=== PATIENT | female | born 1950 | race Caucasian/White ===

== ENCOUNTER 2016-11-03 09:35 | Emergency (ER) | payer MEDICARE, OTHER ==
--- NOTE | 2016-11-03 10:00 | EDM.PDOC ---
ED HPI Trauma - General Chief Complaint: Upper Extremity Injury/Pain Stated Complaint: INJURY TO LT ARM Time Seen by Provider: 11/03/16 09:47 Source: Reports: Patient History Limitations: Reports: No limitations - History of Present Illness INITIAL COMMENTS - FREE TEXT/NARRATIVE: The patient presents with left wrist pain. She tripped on something and fell backward and hurt her left wrist. She has an obvious deformity to her left wrist. She is right handed. She denies any other injuries. She is in good health. Occurred When: just prior to arrival Occurred Where: home Method of Injury: fall (She tripped on something and fell backward) Severity: moderate Pain/Injury Location: Reports: upper extremity, left (wrist) Consciousness: Reports: no loss of consciousness Associated Symptoms: Reports: no other symptoms Allergies/ADRs: Allergies No Known Allergies Allergy (Verified 11/03/16 09:51) Home Medications: Ambulatory Orders Hydrocodone/Acetaminophen [Hydrocodon-Acetaminophen 5-325] 1 - 2 each PO Q6HR PRN #20 tablet 11/03/16 PARoxetine HCl [Paroxetine HCl] 10 mg PO DAILY 11/03/16 [Confirmed 11/03/16] Review of Systems - Review of Systems Review Of Systems: See Below Constitutional: Reports: no symptoms Eyes: Reports: no symptoms Ears: Reports: no symptoms Nose: Reports: no symptoms Mouth/Throat: Reports: no symptoms Respiratory: Reports: no symptoms Cardiovascular: Reports: no symptoms GI/Abdominal: Reports: No symptoms Genitourinary: Reports: no symptoms Musculoskeletal: Reports: other (Left wrist injury) Trauma Exam - Physical Exam Exam: See Below Exam Limited By: No limitations General Appearance: Reports: alert, no apparent distress Head: Reports: atraumatic, normocephalic Ears: Reports: normal external exam Nose: Reports: normal inspection Neck: Reports: non-tender Respiratory Exam: Reports: no respiratory distress, lungs clear, normal breath sounds Cardiovascular: Reports: regular rate, rhythm, no edema, no murmur GI/Abdominal: Reports: soft, non tender, no organomegaly Extremities: Reports: other (Left wrist has an obvious deformity. She has good sensation and capillary refill distally. She can move her fingers.) ED TRAUMA EXTREMITY PROCEDURES - Joint Reduction Site: other (Left wrist) Sedation: hematoma/fracture block Local anesthesia - Lidocaine (Xylocaine): 1% plain Pre-procedure NV status: normal Post-procedure NV status: normal Technique: traction/counter traction Number of Attempts: 1 Post-reduction imaging: completely reduced Joint Reduction Complications: No - Splinting Left Upper Extremity Splint site: Left wrist Pre-procedure NV status: normal Post-procedure NV status: normal Splint material: fiberglass Splint design: sugar tong Applied & form fitted by: provider Provider post-splint application NV check: NV status normal, good position Complications: No Course - Vital Signs Last Recorded V/S: Last Vital Signs Temp 98.8 F 11/03/16 09:40 Pulse 100 11/03/16 09:40 Resp 16 11/03/16 09:40 BP 132/84 11/03/16 09:40 Pulse Ox 97 11/03/16 09:40 - Orders/Labs/Meds Orders: Active Orders 24 hr Category Date Time Status Peripheral IV Care [RC] . DIRECTED Care 11/03/16 10:41 Active Wrist 2V Lt [CR] Stat Exams 11/03/16 11:48 Taken Wrist Comp Min 3V Lt [CR] Stat Exams 11/03/16 09:55 Taken Lactated Ringers [Ringers, Lactated] 1,000 ml Med 11/03/16 10:45 Active IV ASDIRECTED Sodium Chloride 0.9% [Saline Flush] Med 11/03/16 10:41 Active 10 ml FLUSH ASDIRECTED PRN Peripheral IV Insertion Adult [OM.PC] Routine Oth 11/03/16 10:41 Ordered Medication Orders Lactated Ringer's (Ringers, Lactated) 1,000 mls @ 125 mls/hr IV ASDIRECTED SADI Last Admin: 11/03/16 11:12 Dose: 125 mls/hr Sodium Chloride (Saline Flush) 10 ml FLUSH ASDIRECTED PRN PRN Reason: Keep Vein Open Last Admin: 11/03/16 10:57 Dose: 10 ml Meds: Medications Generic Name Dose Route Start Last Admin Trade Name Freq PRN Reason Stop Dose Admin Lactated Ringer's 1,000 mls @ 125 mls/hr 11/03/16 10:45 11/03/16 11:12 Ringers, Lactated IV 125 mls/hr ASDIRECTED SADI Administration Sodium Chloride 10 ml 11/03/16 10:41 11/03/16 10:57 Saline Flush FLUSH 10 ml ASDIRECTED PRN Administration Keep Vein Open Discontinued Medications Generic Name Dose Route Start Last Admin Trade Name Graciela PRN Reason Stop Dose Admin Hydromorphone HCl 1 mg 11/03/16 10:42 11/03/16 11:02 Dilaudid IVPUSH 11/03/16 10:43 1 mg ONETIME ONE Administration Lidocaine HCl 50 ml 11/03/16 10:45 11/03/16 11:03 Xylocaine 1% INJECT 11/03/16 10:46 50 ml ONETIME ONE Administration - Re-Assessments/Exams Free Text/Narrative Re-Assessment/Exam: 11/03/16 10:00 I will get an x-ray of her wrist. 11/03/16 12:12 She has a closed fracture of her distal radius. I ordered an IV and gave her dilaudid 1mg IV. I then did a hematoma block and reduced the fracture and I splinted her arm. She feels better. 11/03/16 12:14 The post reduction shows better alignment. I will discharge her home. Departure - Departure Time of Disposition: 12:15 Disposition: Home, Self-Care 01 Condition: good Clinical Impression: Fracture of radius and ulna Qualifiers: Encounter type: initial encounter Fracture type: closed Laterality: left Qualified Code(s): S52.502A - Unspecified fracture of the lower end of left radius, initial encounter for closed fracture; S52.602A - Unspecified fracture of lower end of left ulna, initial encounter for closed fracture Prescriptions: Hydrocodone/Acetaminophen [Hydrocodon-Acetaminophen 5-325] 1 - 2 each PO Q6HR PRN #20 tablet PRN Reason: Pain Referrals: Saturnino Altamirano MD [Physician] - 1 Day (Call the clinic tomorrow and let them know he wants to see you on Friday.) Forms: ED Department Discharge Additional Instructions: Ice your wrist for 15 minutes every other while awake for 2 days. Elevate your arm above your heart as much as you can for 2 days. Please return if you are worse. Dr Altamirano would like to see you tomorrow. Call the clinic and make an appointment. You can try some motrin for the pain or the pain meds I gave you. - My Orders Last 24 Hours: My Active Orders 11/03/16 09:55 Wrist Comp Min 3V Lt [CR] Stat 11/03/16 10:41 Peripheral IV Care [RC] . DIRECTED Sodium Chloride 0.9% [Saline Flush] 10 ml FLUSH ASDIRECTED PRN Peripheral IV Insertion Adult [OM.PC] Routine 11/03/16 10:45 Lactated Ringers [Ringers, Lactated] 1,000 ml IV ASDIRECTED 11/03/16 11:48 Wrist 2V Lt [CR] Stat - Assessment/Plan Last 24 Hours: My Active Orders 11/03/16 09:55 Wrist Comp Min 3V Lt [CR] Stat 11/03/16 10:41 Peripheral IV Care [RC] . DIRECTED Sodium Chloride 0.9% [Saline Flush] 10 ml FLUSH ASDIRECTED PRN Peripheral IV Insertion Adult [OM.PC] Routine 11/03/16 10:45 Lactated Ringers [Ringers, Lactated] 1,000 ml IV ASDIRECTED 11/03/16 11:48 Wrist 2V Lt [CR] Stat
[2016-11-03] MEDS ORDERED: Sodium Chloride 0.9% 10 ML Syringe FLUSH PRN (10:41)
[2016-11-03] MEDS ORDERED: HYDROmorphone 1 MG/ML Syringe IVPUSH ONE (10:42)
[2016-11-03] MEDS ORDERED: Lactated Ringers 1,000 ML IV SCH (10:45)
[2016-11-03] MEDS ORDERED: Lidocaine 1% 50 ML MDV INJECT ONE (10:45)
[2016-11-03 12:22] VITALS: BP 129/69
--- NOTE | 2016-11-04 08:10 | CR ---
Left wrist: Two views of the left wrist were obtained. Comparison: Previous left wrist study performed earlier on the same day (time 10:08 AM). Angulated distal radial fracture shows improvement but mild posterior tilt remains. Slightly displaced ulnar styloid avulsion fracture is incidentally noted. Degenerative change is stable. Fiberglass cast or splint is in place. Impression: 1. Improved alignment with mild posterior tilt remaining. 2. Fiberglass cast or splint is noted. Diagnostic code #2
--- NOTE | 2016-11-04 08:10 | CR ---
Left wrist: Four views of the left wrist were obtained. Comparison: No previous study. Distal radial fracture is identified through the metaphysis. Posterior impaction is seen with posterior tilt of the distal radial articular margin. Several small bony fragments are seen posterior to the fracture. Small ulnar styloid avulsion fracture is seen. Joint space narrowing noted off the distal navicular bone as well as degenerative change within the first MTP joint. Impression: 1. Distal radial and ulnar fractures as described above. 2. Degenerative change. Diagnostic code #3
== END 2016-11-03 12:41 | disposition home or self-care (01) ==
LOC: JD.ED 09:35
DX: S52.502A Unspecified fracture of the lower end of left radius, initial encounter for closed fracture (principal); S52.602A Unspecified fracture of lower end of left ulna, initial encounter for closed fracture; Z79.899 Other long term (current) drug therapy; W01.0XXA Fall on same level from slipping, tripping and stumbling without subsequent striking against object, initial encounter
CPT/HCPCS: 25565; 25605; 29125; 73100; 73110; 96361; 96374; 99284; J1170; J7050; J7120

== ENCOUNTER 2016-11-05 07:10 | Day surgery (SDC) | payer MEDICARE, OTHER ==
[~2016-11-05 07:10] MED LIST: Lactated Ringers 1,000 ML IV SCH; Lidocaine 1%/Sod Bicarbonate in NS 8.4% 1 ML Syringe PRN; Sodium Chloride 0.9% 10 ML Syringe FLUSH PRN
--- NOTE | 2016-11-05 07:28 | PCM.PREANE ---
Preanesthetic Assessment - ANESTHESIA/TRANSFUSION/FAMILY HX Anesthesia/Transfusion History: Prior Anesthesia Type of Anesthesia Reaction: Reports: Unknown Family History of Anesthesia Reaction: No Type of Transfusion Reactions: Reports: Unknown - REVIEW OF SYSTEMS Constitutional: Reports: no symptoms CARDIOVASCULAR SURGICAL TECH: Reports: no symptoms Respiratory: Reports: no symptoms Cardiovascular: Reports: no symptoms GI: Reports: no symptoms Other: Reports: depression - PHYSICAL ASSESSMENT HR: 55 O2 Sat by Pulse Oximetry: 96 RR: 16 BP: 152/82 Height: 1.68 m Weight: 72.575 kg NPO Status Date: 11/04/16 NPO Status Time: 23:30 ASA Class: 2 Mental Status: alert & oriented x3 Airway Class: Mallampati = 1 Dentition: Reports: normal dentition Thyro-Mental Finger Breadths: 3 Mouth Opening Finger Breadths: 3 ROM/Head Extension: full Respiratory Status: lungs clear to auscultation bilaterally Cardiovascular Status: regular rate & rhythm, normal S1, S2, no murmur, blood pressure WNL - ALLERGIES Allergies/Adverse Reactions: Allergies Allergy/AdvReac Type Severity Reaction Status Date / Time No Known Allergies Allergy Verified 11/04/16 15:03 - BLOOD Blood Available: No Product(s) Available: None - ANESTHESIA PLAN Preop Beta Nam: No Anesthesia Type Planned: general anesthesia - ACKNOWLEDGEMENTS Pt an appropriate candidate for the planned anesthesia: Yes Alternatives and risks of anesthesia discussed w pt/guardian: Yes Pt/Guardian understands and agree with anesthesia plan: Yes PreAnesthesia Questionnaire HEENT History: Reports: Impaired vision Other HEENT History: wears eyeglasses 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: Psychiatric History: Reports: Anxiety Hematologic History: Reports: Anemia, Iron deficiency - Infectious Disease History Infectious Disease History: Reports: Chicken pox, Measles - Past Surgical History HEENT Surgical History: Reports: Tonsillectomy GI Surgical History: Reports: Appendectomy Female Surgical History: Reports: Tubal ligation - SUBSTANCE USE Smoking Status *Q: Never Smoker Second Hand Smoke Exposure: No Recreational Drug Use History: No - HOME MEDS Home Medications: Home Meds Hydrocodone/Acetaminophen [Hydrocodon-Acetaminophen 5-325] 1 - 2 each PO Q6HR PRN #20 tablet 11/03/16 [Rx] PARoxetine HCl [Paroxetine HCl] 10 mg PO DAILY 11/03/16 [History] Naproxen Sodium [Aleve] 1 - 2 tab PO Q6H PRN 11/04/16 [History] - CURRENT (IN HOUSE) MEDS Current Meds: Current Medications Lactated Ringer's (Ringers, Lactated) 1,000 mls @ 125 mls/hr IV ASDIRECTED SADI Stop: 11/05/16 23:00 Lidocaine/Sodium Bicarbonate (Buffered Lidocaine 1% In Ns 8.4%) 0.25 ml .XX ONETIME PRN PRN Reason: Prior to IV Start Stop: 11/05/16 18:00 Sodium Chloride (Saline Flush) 10 ml FLUSH ASDIRECTED PRN PRN Reason: Keep Vein Open Stop: 11/05/16 18:00
[2016-11-05] MEDS ORDERED: Scopolamine 1.5 MG Transdermal Patch TRDERM ONE (07:29)
[2016-11-05] MEDS ORDERED: fentaNYL 100 MCG/2 ML SDV IVPUSH PRN (07:29)
[2016-11-05] MEDS ORDERED: Metoclopramide 10 MG/2 ML SDV IVPUSH PRN (07:29)
[2016-11-05] MEDS ORDERED: Ondansetron 4 MG/2 ML SDV IVPUSH PRN ×2 (07:29→09:39)
[2016-11-05] MEDS ORDERED: Dexamethasone 4 MG/ML SDV ONE (07:56)
[2016-11-05] MEDS ORDERED: Ondansetron 4 MG/2 ML SDV ONE (07:56)
[2016-11-05] MEDS ORDERED: fentaNYL 250 MCG/5 ML SDV ONE (07:57)
[2016-11-05] MEDS ORDERED: Midazolam 1 MG/ML 2 ML SDV ONE (07:57)
[2016-11-05] MEDS ORDERED: Propofol 200 MG/20 ML SDV ONE (07:57)
[2016-11-05] MEDS ORDERED: Acetaminophen/oxyCODONE 325-5 MG Tab PO PRN (09:39)
[2016-11-05] MEDS ORDERED: Ketorolac 15 MG/ML SDV IVPUSH PRN (09:39)
[2016-11-05] MEDS ORDERED: Morphine 15 MG Tab.ER PO SCH (09:45)
--- NOTE | 2016-11-05 10:26 | PCM.POSTAN ---
POST ANESTHESIA ASSESSMENT - MENTAL STATUS Mental Status: alert, oriented - VITAL SIGNS Pulse Rate: 53 SaO2: 93 Resp Rate: 16 Blood Pressure: 112/72 Temperature: 36.8 C - RESPIRATORY Respiratory Status: respiratory rate WNL, airway patent, O2 saturation stable, supplemental oxygen - CARDIOVASCULAR CV Status: pulse rate WNL, blood pressure stable - GASTROINTESTINAL GI Status: no symptoms - PAIN Pain Score: 0 - POST OP HYDRATION Hydration Status: adequate & stable
--- NOTE | 2016-11-05 11:09 | CR ---
Left wrist: Multiple fluoroscopic spot views utilizing C-arm device was obtained of the left wrist. Comparison: Previous left wrist exam of 11/04/16. Study shows reduction of distal radial fracture. Improved alignment is seen. Fiberglass cast is seen on the final films. Fluoroscopy time given as 16.1 seconds Impression: 1. Improved alignment of previously noted fracture with placement of fiberglass cast. Diagnostic code #2
[2016-11-05 11:38] VITALS: BP 145/75
--- NOTE | 2016-11-05 13:10 | OR ---
DATE OF OPERATION: 11/05/2016 SURGEON: Saturnino Altamirano MD PREOPERATIVE DIAGNOSIS: Displaced comminuted fracture, distal left radius ulna. POSTOPERATIVE DIAGNOSIS: Displaced comminuted fracture, distal left radius ulna. ANESTHESIA: General. OPERATION PERFORMED: Closed reduction of distal left radius ulna fracture with application of short arm cast. DESCRIPTION OF PROCEDURE: The patient was taken to the operating room in supine position, placed under general anesthesia with muscle relaxation. After adequate relaxation and anesthesia, the patient's fingers were then placed in fingertrap traction unit off the side of the operating table. Approximately 10 pounds of weight was slowly applied to the upper extremity with the fingers of the traction to apply traction to the fracture site to aid in the reduction. Fluoroscopy was used through the procedure to establish the initial deformity that was present and correct the dorsal angulation that was present. Once the traction was on there for approximately 8 to 10 minutes, very gentle manipulation with forward pressure on the dorsal fragment to go on a volar direction over the lip was carried out and then the traction was lightly released. Fluoroscopy was used and found to have almost anatomic reduction of the fracture, was in excellent position. The operation was proceeded with application of short arm cast. Hard copy of x-rays were taken on both AP and lateral, this found the reduction to be holding and very adequate, and did not appear to be unstable. The wrist was volar flexed to tile helper in the maintenance of the reduction. The patient tolerated this whole procedure well and left the operating room in stable condition to her room for recovery. ESTIMATED BLOOD LOSS: MMODAL /[id number]
== END 2016-11-05 12:09 | disposition home or self-care (01) ==
LOC: JD.SDS 07:10
PROVIDERS: ATTEND Specialist
PROC: 0PS Upper Bones, Reposition (ICD-10-PCS; principal; 2016-11-05)
DX: S52.602A Unspecified fracture of lower end of left ulna, initial encounter for closed fracture (principal); F41.9 Anxiety disorder, unspecified; W18.09XA Striking against other object with subsequent fall, initial encounter; Y92.019 Unspecified place in single-family (private) house as the place of occurrence of the external cause
CPT/HCPCS: 25605; 76000; A9270; J1100; J2250; J2405; J3010; J7120; 01820; J2704

== ENCOUNTER 2017-09-11 11:12 | Emergency (ER) | payer MEDICARE, OTHER ==
[2017-09-11 11:26] VITALS: BP 161/84
--- NOTE | 2017-09-11 11:48 | EDM.PDOC ---
ED HPI GENERAL MEDICAL PROBLEM - General Chief Complaint: Chest Pain Stated Complaint: RIB PAIN Time Seen by Provider: 09/11/17 11:27 Source of Information: Reports: Patient History Limitations: Reports: No Limitations - History of Present Illness INITIAL COMMENTS - FREE TEXT/NARRATIVE: The patient presents with right chest wall pain. She was cleaning her tub and reaching over the tub and felt a pain to the right lateral lower rib cage. The pain is not getting better. It is made worse by deep breathing and movement. She has a mild cough and that makes it worse. This started on Friday. She has no shortness of breath. She has no fever or chills. She has no history of SC. She has no abdominal pain, nausea or vomiting. Onset: Gradual Duration: Day(s): (Friday) Location: Reports: Chest Quality: Reports: Sharp Severity: Moderate Improves with: Reports: None Worsens with: Reports: None Context: Reports: Activity (Cleaning her tub and she was reaching over the tub) Associated Symptoms: Reports: Chest Pain. 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: Psychiatric History: Reports: Anxiety Hematologic History: Reports: Anemia, Iron Deficiency - Infectious Disease History Infectious Disease History: Reports: Chicken Pox, Measles - Past Surgical History GI Surgical History: Reports: Appendectomy Female Surgical History: Reports: Tubal Ligation Social & Family History - Tobacco Use Smoking Status *Q: Never Smoker Second Hand Smoke Exposure: No - Caffeine Use Caffeine Use: Reports: Soda - Recreational Drug Use Recreational Drug Use: No ED ROS GENERAL - Review of Systems Review Of Systems: See Below Constitutional: Reports: No Symptoms HEENT: Reports: No Symptoms Respiratory: Reports: No Symptoms Cardiovascular: Reports: Chest Pain Endocrine: Reports: No Symptoms GI/Abdominal: Reports: No Symptoms : Reports: No Symptoms Musculoskeletal: Reports: No Symptoms ED EXAM, GENERAL - Physical Exam Exam: See Below Exam Limited By: No Limitations General Appearance: Alert, No Apparent Distress Ears: Normal External Exam Nose: Normal Inspection Head: Atraumatic, Normocephalic Neck: Normal Inspection Respiratory/Chest: No Respiratory Distress, Lungs Clear, Normal Breath Sounds, Other (Pain upon palpation to the right, lateral, lower ribs) Cardiovascular: Regular Rate, Rhythm, No Edema, No Murmur GI/Abdominal: Soft, Non-Tender, No Organomegaly, No Mass Back Exam: Normal Inspection Extremities: Normal Inspection Course - Vital Signs Last Recorded V/S: Last Vital Signs Temp 97.2 F 09/11/17 11:22 Pulse 68 09/11/17 11:22 Resp 18 09/11/17 11:22 BP 161/84 H 09/11/17 11:22 Pulse Ox 98 09/11/17 11:22 - Orders/Labs/Meds Orders: Active Orders 24 hr Category Date Time Status EKG Documentation Completion [RC] ASDIRECTED Care 09/11/17 11:41 Active Incentive Spirometry [RT Incentive Spirometry] [RC] Care 09/11/17 12:39 Ordered ASDIRECTED Ribs 2V w Chest Rt [CR] Stat Exams 09/11/17 11:40 Taken EKG 12 Lead [EK] Stat Ther 09/11/17 11:41 Ordered - Re-Assessments/Exams Free Text/Narrative Re-Assessment/Exam: 09/11/17 11:48 I have ordered a CXR and EKG. 09/11/17 12:40 Her EKG shows a NSR with no acute changes. Her CXR shows no infiltrate, pneumo , or fractured ribs. Departure - Departure Time of Disposition: 12:45 Disposition: Home, Self-Care 01 Condition: Good Clinical Impression: Chest wall injury Qualifiers: Encounter type: initial encounter Qualified Code(s): S29.9XXA - Unspecified injury of thorax, initial encounter Referrals: Brii Weems NP [Primary Care Provider] - Forms: ED Department Discharge Additional Instructions: Use the incentive spyrometer 10 reps every other hour for 3 to 5 days. Take tylenol or motrin for the pain. Please return if you are worse. - My Orders Last 24 Hours: My Active Orders 09/11/17 11:40 Ribs 2V w Chest Rt [CR] Stat 09/11/17 11:41 EKG Documentation Completion [RC] ASDIRECTED EKG 12 Lead [EK] Stat 09/11/17 12:39 Incentive Spirometry [RT Incentive Spirometry] [RC] ASDIRECTED - Assessment/Plan Last 24 Hours: My Active Orders 09/11/17 11:40 Ribs 2V w Chest Rt [CR] Stat 09/11/17 11:41 EKG Documentation Completion [RC] ASDIRECTED EKG 12 Lead [EK] Stat 09/11/17 12:39 Incentive Spirometry [RT Incentive Spirometry] [RC] ASDIRECTED
--- NOTE | 2017-09-11 14:36 | CR ---
Chest and right ribs: Frontal view of the chest was obtained as well as three views of the right ribs. Comparison: Prior chest x-ray of 08/25/12. Slight scarring is seen within the left base. Lungs otherwise are clear. Heart size and mediastinum are normal. No discrete fracture or other right-sided rib abnormality is seen. Impression: 1. Nothing acute is seen on frontal chest x-ray. No discrete rib abnormality is appreciated. Diagnostic code #2
== END 2017-09-11 13:15 | disposition home or self-care (01) ==
LOC: JD.ED 11:12
DX: S29.9XXA Unspecified injury of thorax, initial encounter (principal); Z79.899 Other long term (current) drug therapy; X58.XXXA Exposure to other specified factors, initial encounter
CPT/HCPCS: 71101-26-RT; 71101-RT; 93005; 93010; 99283-25; 99284-25

== ENCOUNTER → 2021-05-24 | Day surgery (SDC) | payer MEDICARE, OTHER ==
--- NOTE | 2021-05-24 07:55 | PCM.PREANE ---
Preanesthetic Assessment - Anesthesia/Transfusion/Family Hx Anesthesia History: Prior Anesthesia Without Reaction Family History of Anesthesia Reaction: No Transfusion History: No Prior Transfusion(s) Type of Transfusion Reactions: Reports: Unknown Intubation History: Unknown - Review of Systems General: No Symptoms Pulmonary: No Symptoms Cardiovascular: No Symptoms Gastrointestinal: No Symptoms Neurological: No Symptoms Other: Reports: None - Physical Assessment NPO Status Date: 05/23/21 NPO Status Time: 19:30 ASA Class: 2 Mental Status: Alert & Oriented x3 Airway Class: Mallampati = 1 Dentition: Reports: Normal Dentition Thyro-Mental Finger Breadths: 3 Mouth Opening Finger Breadths: 3 ROM/Head Extension: Full Lungs: Clear to Auscultation, Normal Respiratory Effort Cardiovascular: Regular Rate, Regular Rhythm - Allergies Allergies/Adverse Reactions: Allergies Allergy/AdvReac Type Severity Reaction Status Date / Time No Known Allergies Allergy Verified 05/23/21 16:29 - Acknowledgements Anesthesia Type Planned: MAC Pt an Appropriate Candidate for the Planned Anesthesia: Yes Alternatives and Risks of Anesthesia Discussed w Pt/Guardian: Yes Pt/Guardian Understands and Agrees with Anesthesia Plan: Yes PreAnesthesia Questionnaire HEENT History: Reports: Impaired Vision Other HEENT History: wears eyeglasses Cardiovascular History: Reports: None Respiratory History: Reports: None Gastrointestinal History: Reports: None Genitourinary History: Reports: None 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: Musculoskeletal History: Reports: Arthritis Neurological History: Reports: None Psychiatric History: Reports: Anxiety Endocrine/Metabolic History: Reports: None Hematologic History: Reports: Anemia, Iron Deficiency - Infectious Disease History Infectious Disease History: Reports: Chicken Pox, Measles - Past Surgical History HEENT Surgical History: Reports: Tonsillectomy GI Surgical History: Reports: Appendectomy Female Surgical History: Reports: Breast Biopsy, Tubal Ligation - SUBSTANCE USE Tobacco Use Status *Q: Never Tobacco User - HOME MEDS Home Medications: Home Meds PARoxetine [Paxil] 20 mg PO DAILY 05/23/21 [History] - CURRENT (IN HOUSE) MEDS Current Meds: Current Medications Brimonidine Tartrate (Brimonidine 0.2% Ophth Soln 5 Ml Bottle) 0 ml EYERT ASDIRECTED SADI Stop: 05/24/21 18:00 Cefuroxime Sodium (Cefuroxime 10 Mg/Ml Syringe) 0 mg EYERT ASDIRECTED SADI Stop: 05/24/21 18:00 Lidocaine HCl (Lidocaine 1% Pf 2 Ml Sdv) 0 ml INJECT ASDIRECTED SADI Stop: 05/24/21 18:00 Phenylephrine HCl (Phenylephrine 2.5% Ophth Soln 2 Ml Bot) 0 ml EYERT ASDIRECTED SADI Stop: 05/24/21 18:00 Pilocarpine HCl (Pilocarpine 4% Ophth Soln 15 Ml Bot) 0 ml EYERT ASDIRECTED SADI Stop: 05/24/21 18:00 Polymyxin/Trimethoprim Sulfate (Polymyxin B/Trimethoprim 10 Ml Bottle) 0 ml EYERT ASDIRECTED SADI Stop: 05/24/21 18:00 Tetracaine HCl (Tetracaine Hcl/Pf 0.5% 4 Ml Bottle) 0 ml EYEBOTH ASDIRECTED SADI Stop: 05/24/21 18:00 Tropicamide (Tropicamide 1% Ophth Soln 15 Ml Bottle) 0 ml EYERT ASDIRECTED SADI Stop: 05/24/21 18:00
[2021-05-24] MEDS: Polymyxin B/Trimethoprim 10 ML Bottle EYERT SCH ×4 (08:00→09:22)
[2021-05-24] MEDS: Brimonidine 0.2% Ophth Soln 5 ML Bottle EYERT SCH ×4 (08:05→09:22)
[2021-05-24] MEDS: Phenylephrine 2.5% Ophth Soln 2 ML Bot EYERT SCH ×6 (08:10→09:03)
[2021-05-24] MEDS: Tropicamide 1% Ophth Soln 15 ML Bottle EYERT SCH ×4 (08:14→08:43)
[2021-05-24] MEDS: Tetracaine HCl/PF 0.5% 4 ML Bottle EYEBOTH SCH ×5 (08:49→09:11)
[2021-05-24] MEDS: Cefuroxime 10 MG/ML SYRINGE EYERT SCH ×2 (08:58→09:21)
[2021-05-24] MEDS: Lidocaine 1% PF 2 ML SDV INJECT SCH ×2 (08:58→09:12)
[2021-05-24] MEDS: Pilocarpine 4% Ophth Soln 15 ML Bot EYERT SCH ×2 (08:59→09:22)
--- NOTE | 2021-05-24 09:24 | PCM48HPAN ---
Post Anesthesia Note - EVALUATION WITHIN 48HRS OF ANESTHETIC Vital Signs in Normal Range: Yes Patient Participated in Evaluation: Yes Respiratory Function Stable: Yes Airway Patent: Yes Cardiovascular Function Stable: Yes Hydration Status Stable: Yes Pain Control Satisfactory: Yes Nausea and Vomiting Control Satisfactory: Yes Mental Status Recovered: Yes
[2021-05-24 15:35] VITALS: BP 124/76; PULSE 65
== END ==
LOC: JD.SDS 07:28
PROVIDERS: ATTEND Ophthalmology
DX: H25.813 Combined forms of age-related cataract, bilateral (principal); H35.3131 Nonexudative age-related macular degeneration, bilateral, early dry stage; H35.363 Drusen (degenerative) of macula, bilateral; H18.513 Endothelial corneal dystrophy, bilateral; H16.223 Keratoconjunctivitis sicca, not specified as Sjogren's, bilateral; H43.811 Vitreous degeneration, right eye; Z98.890 Other specified postprocedural states; Z79.899 Other long term (current) drug therapy
CPT/HCPCS: 66984; J0697; V2632

== ENCOUNTER 2021-07-19 08:14 | Day surgery (SDC) | payer MEDICARE, OTHER ==
[2021-07-19] MEDS: Polymyxin B/Trimethoprim 10 ML Bottle EYELF SCH ×4 (08:38→10:22)
--- NOTE | 2021-07-19 08:43 | PCM.PREANE ---
Preanesthetic Assessment - Procedure Proposed Procedure: cataract left - Anesthesia/Transfusion/Family Hx Anesthesia History: Prior Anesthesia Without Reaction Family History of Anesthesia Reaction: No Transfusion History: No Prior Transfusion(s) Type of Transfusion Reactions: Reports: Unknown Intubation History: Unknown - Review of Systems General: No Symptoms Pulmonary: No Symptoms Cardiovascular: No Symptoms Gastrointestinal: No Symptoms Neurological: No Symptoms Other: Reports: Anxiety - Physical Assessment NPO Status Date: 07/18/21 NPO Status Time: 18:15 Vital Signs: Last Vital Signs Temp 98.1 F 07/19/21 08:25 Pulse 70 07/19/21 08:25 Resp 16 07/19/21 08:25 BP 145/80 H 07/19/21 08:25 Pulse Ox 97 07/19/21 08:25 Height: 5 ft 6 in Weight: 79.379 kg ASA Class: 2 Mental Status: Alert & Oriented x3 Airway Class: Mallampati = 2 Dentition: Reports: Normal Dentition Thyro-Mental Finger Breadths: 3 Mouth Opening Finger Breadths: 3 ROM/Head Extension: Full Lungs: Clear to Auscultation, Normal Respiratory Effort Cardiovascular: Regular Rate, Regular Rhythm - Allergies Allergies/Adverse Reactions: Allergies Allergy/AdvReac Type Severity Reaction Status Date / Time No Known Allergies Allergy Verified 07/19/21 08:37 - Blood Blood Available: No - Acknowledgements Anesthesia Type Planned: MAC Pt an Appropriate Candidate for the Planned Anesthesia: Yes Alternatives and Risks of Anesthesia Discussed w Pt/Guardian: Yes Pt/Guardian Understands and Agrees with Anesthesia Plan: Yes PreAnesthesia Questionnaire HEENT History: Reports: Impaired Vision Other HEENT History: wears eyeglasses Cardiovascular History: Reports: None Respiratory History: Reports: None Gastrointestinal History: Reports: None Genitourinary History: Reports: None 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: Musculoskeletal History: Reports: Arthritis Neurological History: Reports: None Psychiatric History: Reports: Anxiety Endocrine/Metabolic History: Reports: None Hematologic History: Reports: Anemia, Iron Deficiency Oncologic (Cancer) History: Reports: None - Infectious Disease History Infectious Disease History: Reports: Chicken Pox, Measles - Past Surgical History HEENT Surgical History: Reports: Tonsillectomy GI Surgical History: Reports: Appendectomy Female Surgical History: Reports: Breast Biopsy, Tubal Ligation - SUBSTANCE USE Tobacco Use Status *Q: Never Tobacco User Tobacco Use Within Last Twelve Months: No Second Hand Smoke Exposure: No Days Per Week of Alcohol Use: 0 Recreational Drug Use History: No - HOME MEDS Home Medications: Home Meds PARoxetine [Paxil] 20 mg PO DAILY 05/23/21 [History] - CURRENT (IN HOUSE) MEDS Current Meds: Current Medications Brimonidine Tartrate (Brimonidine 0.2% Ophth Soln 5 Ml Bottle) 0 ml EYELF ASDIRECTED SADI Stop: 07/19/21 23:00 Cefuroxime Sodium (Cefuroxime 10 Mg/Ml Syringe) 0 mg EYELF ASDIRECTED SADI Stop: 07/19/21 23:00 Lidocaine HCl (Lidocaine 1% Pf 2 Ml Sdv) 0 ml INJECT ASDIRECTED SADI Stop: 07/19/21 23:00 Phenylephrine HCl (Phenylephrine 2.5% Ophth Soln 2 Ml Bot) 0 ml EYELF ASDIRECTED SADI Stop: 07/19/21 23:00 Pilocarpine HCl (Pilocarpine 4% Ophth Soln 15 Ml Bot) 0 ml EYELF ASDIRECTED SADI Stop: 07/19/21 23:00 Polymyxin/Trimethoprim Sulfate (Polymyxin B/Trimethoprim 10 Ml Bottle) 0 ml EYELF ASDIRECTED SADI Stop: 07/19/21 23:00 Tetracaine HCl (Tetracaine Hcl/Pf 0.5% 4 Ml Bottle) 0 ml EYEBOTH ASDIRECTED SADI Stop: 07/19/21 23:00 Tropicamide (Tropicamide 1% Ophth Soln 15 Ml Bottle) 0 ml EYELF ASDIRECTED SADI Stop: 07/19/21 23:00
[2021-07-19] MEDS: Brimonidine 0.2% Ophth Soln 5 ML Bottle EYELF SCH ×4 (08:46→10:22)
[2021-07-19] MEDS: Phenylephrine 2.5% Ophth Soln 2 ML Bot EYELF SCH ×6 (08:55→10:02)
[2021-07-19] MEDS: Tropicamide 1% Ophth Soln 15 ML Bottle EYELF SCH ×4 (08:59→09:40)
[2021-07-19] MEDS: Tetracaine HCl/PF 0.5% 4 ML Bottle EYEBOTH SCH ×3 (09:49→10:07)
[2021-07-19] MEDS: Cefuroxime 10 MG/ML SYRINGE EYELF SCH ×2 (10:03→10:21)
[2021-07-19] MEDS: Pilocarpine 4% Ophth Soln 15 ML Bot EYELF SCH ×2 (10:03→10:22)
[2021-07-19] MEDS: Lidocaine 1% PF 2 ML SDV INJECT SCH ×2 (10:03→10:08)
--- NOTE | 2021-07-19 10:27 | PCM48HPAN ---
Post Anesthesia Note - EVALUATION WITHIN 48HRS OF ANESTHETIC Vital Signs in Normal Range: Yes Patient Participated in Evaluation: Yes Respiratory Function Stable: Yes Airway Patent: Yes Cardiovascular Function Stable: Yes Hydration Status Stable: Yes Pain Control Satisfactory: Yes Nausea and Vomiting Control Satisfactory: Yes Mental Status Recovered: Yes Vital Signs: Last Vital Signs Temp 36.7 C 07/19/21 08:25 Pulse 70 07/19/21 08:25 Resp 16 07/19/21 08:25 BP 145/80 H 07/19/21 08:25 Pulse Ox 97 07/19/21 08:25
[2021-07-19 10:41] VITALS: BP 152/79; PULSE 72
== END 2021-07-19 10:32 | disposition home or self-care (01) ==
LOC: JD.SDS 08:14
PROVIDERS: ATTEND Ophthalmology
DX: H25.812 Combined forms of age-related cataract, left eye (principal); H18.513 Endothelial corneal dystrophy, bilateral; Z96.1 Presence of intraocular lens; H16.223 Keratoconjunctivitis sicca, not specified as Sjogren's, bilateral; H43.811 Vitreous degeneration, right eye; Z79.899 Other long term (current) drug therapy; F41.9 Anxiety disorder, unspecified
CPT/HCPCS: 66984; J0697; V2632

== ENCOUNTER 2023-11-13 07:50 | Day surgery (SDC) | payer MEDICARE, OTHER ==
[~2023-11-13 07:50] MED LIST changes: -Lactated Ringers 1,000 ML IV SCH; -Lidocaine 1%/Sod Bicarbonate in NS 8.4% 1 ML Syringe PRN
[2023-11-13] MEDS: Lactated Ringers 1,000 ML IV SCH (07:50)
[2023-11-13] MEDS ORDERED: Sodium Chloride 0.9% 10 ML Syringe FLUSH SCH (09:00)
[2023-11-13] MEDS ORDERED: Propofol 200 MG/20 ML SDV ONE (09:01)
[2023-11-13] MEDS ORDERED: Lidocaine 2% 5 ML SDV ONE (09:02)
[2023-11-13 10:10] VITALS: BP 105/63; PULSE 62
== END 2023-11-13 10:20 | disposition home or self-care (01) ==
LOC: JD.SDS 07:50
PROVIDERS: ATTEND Student in an Organized Health Care Education/Training Program
DX: K21.9 Gastro-esophageal reflux disease without esophagitis (principal); K44.9 Diaphragmatic hernia without obstruction or gangrene; I10 Essential (primary) hypertension; M81.0 Age-related osteoporosis without current pathological fracture; G47.00 Insomnia, unspecified; E55.9 Vitamin D deficiency, unspecified; Z79.899 Other long term (current) drug therapy
CPT/HCPCS: 43235; J2704; J7120; 00731; 99100; J3490

== ENCOUNTER 2025-01-20 19:05 | Emergency (ER) | payer MEDICARE, OTHER ==
[2025-01-20] MEDS ORDERED: Sodium Chloride 0.9% 10 ML Syringe FLUSH PRN (19:21)
[2025-01-20] MEDS: Sodium Chloride 0.9% 1,000 ML IV STA (19:27)
[2025-01-20 19:40] LABS: BASOPHILS ABSOLUTE AUTO 0.1 K/mm3 (0.0-0.2); EOSINOPHILS ABSOLUTE AUTO 0.2 K/mm3 (0.0-0.4); EOSINOPHILS PERCENT AUTO 2.5 % (0.0-6.0); HEMATOCRIT 34.3 % (37.0-47.0); HEMOGLOBIN 10.8 gm/dl (12.0-16.0); IMMATURE GRAN ABSOLUTE AUTO 0.02 K/mm3 (0.00-0.05); IMMATURE GRAN PERCENT AUTO 0.3 % (0.0-0.4); LYMPHOCYTES ABSOLUTE AUTO 1.8 K/mm3 (1.0-4.8); LYMPHOCYTES PERCENT AUTO 30.2 % (24.0-44.0); MEAN CORPUSCULAR HEMOGLOBIN 26.6 pg (28.0-32.0); MEAN CORPUSCULAR HGB CONC 31.5 g/dl (32.0-36.0); MEAN CORPUSCULAR VOLUME 84.5 fl (83.0-99.0); MEAN PLATELET VOLUME 11.3 fl (9.4-12.3); MONOCYTES ABSOLUTE AUTO 0.4 K/mm3 (0.0-0.8); MONOCYTES PERCENT AUTO 7.3 % (0.0-8.0); NEUTROPHILS ABSOLUTE AUTO 3.5 K/mm3 (1.8-7.7); NEUTROPHILS PERCENT AUTO 58.7 % (41.0-71.0); PLATELET COUNT,PLT 213 K/mm3 (150-400); RED BLOOD CELL COUNT 4.06 M/mm3 (4.10-5.30); WHITE BLOOD CELL COUNT,WBC 5.89 K/mm3 (3.9-11.3)
[2025-01-20 20:13] LABS: ALANINE AMINOTRANSFERASE,ALT 29 U/L (14-59); ALBUMIN 3.5 g/dl (3.4-5.0); ALKALINE PHOSPHATASE 42 U/L (46-116); ANION GAP 14.9 (5-15); ASPARTATE AMNIOTRANSFERASE,AST 20 U/L (15-37); BILIRUBIN TOTAL 1.7 mg/dL (0.2-1.0); BLOOD UREA NITROGEN,BUN 18 mg/dL (7-18); BUN/CREATININE RATIO 16.4 (14-18); CALCIUM 8.5 mg/dL (8.5-10.1); CARBON DIOXIDE,CO2 24 mEq/L (21-32); CHLORIDE,CL 106 mEq/L (98-107); CREATININE 1.1 mg/dL (0.55-1.02); EST CRCL DRUG DOSING (CG) 40.38 mL/min; ESTIMATED GFR 53 mL/min (>60); GLUCOSE RANDOM 148 mg/dL (70-99); MAGNESIUM 1.8 mg/dL (1.8-2.4); POTASSIUM,K 3.9 mEq/L (3.5-5.1); PROTEIN TOTAL,TP 6.9 g/dl (6.4-8.2); SODIUM,NA 141 mEq/L (136-145)
[2025-01-20 20:28] LABS: TROPONIN I HIGH SENSITIVITY < 4 pg/mL (<=51)
[2025-01-20 21:16] VITALS: BP 115/68; PULSE 73
== END 2025-01-20 21:14 | disposition home or self-care (01) ==
LOC: JD.ED 19:05
DX: R55 Syncope and collapse (principal); K21.9 Gastro-esophageal reflux disease without esophagitis; I10 Essential (primary) hypertension; Z87.891 Personal history of nicotine dependence; Z79.899 Other long term (current) drug therapy; Z90.49 Acquired absence of other specified parts of digestive tract
CPT/HCPCS: 36415; 80053; 83735; 84484; 85025; 93005; 96360; 99284; J7030